=== PATIENT | female | born 1995 | race Caucasian/White ===

== ENCOUNTER 2018-02-12 12:05 | Emergency (ER) | payer BC, OTHER ==
[2018-02-12 13:23] LABS: Bilirubin Negative (Negative); Blood, Urine Negative (Negative); Clarity Clear (Clear); Glucose, Urine (Dipstick) Negative (Negative); Leukocyte Negative (Negative); Nitrite Negative (Negative); Protein, Urine (Dipstick) Trace mg/dL (Neg-Trace); Specific Gravity, Urine 1.025 (1.005-1.030)
--- NOTE | 2018-02-12 14:43 | ULT ---
OB ULTRASOUND: Date: 02/12/18 INDICATION: Assess status of fetus. No movement noted by the mother. FINDINGS: A viable intrauterine is identified. Gestational age by ultrasound is 16 weeks/6 days. Biom etry measurements are consistent. Amniotic Fluid: Appears within normal range. Position: Variable. Placenta: Posterior. Heart Rate: 150 beats/minute. Limited anatomy appears unremarkable with intracranial contents, four chamber heart, cord inser tion, bladder, and extremities imaged. IMPRESSION: 16 weeks/6 days by ultrasound measurement. No abnormality identified. POS: PATIENCE
== END 2018-02-12 13:53 | disposition home or self-care (01) ==
LOC: SCSER 12:05
DX: O99.89 Other specified diseases and conditions complicating pregnancy, childbirth and the puerperium (principal); O99.512 Diseases of the respiratory system complicating pregnancy, second trimester; J45.909 Unspecified asthma, uncomplicated; O99.342 Other mental disorders complicating pregnancy, second trimester; F90.9 Attention-deficit hyperactivity disorder, unspecified type; F41.9 Anxiety disorder, unspecified; O99.332 Smoking (tobacco) complicating pregnancy, second trimester; F17.210 Nicotine dependence, cigarettes, uncomplicated; Z3A.17 17 weeks gestation of pregnancy
CPT/HCPCS: 76815; 76856; 81003